=== PATIENT | male | born 1985 | race Hispanic/Latino ===

== ENCOUNTER 2024-10-23 17:56 | Inpatient (IN) | payer SELFPAY ==
[~2024-10-23 17:56] MED LIST: Iopamidol-370 76% 500 ML MDV (1 ML CHARGE) ONE
[2024-10-23 19:07] LABS: #Basophils 0.03 10x3/uL (0.0-0.2); #Eosinophils 0.07 10x3/uL (0.0-0.7); #Monocytes 0.39 10x3/uL (0.11-0.59); #Neutrophils 4.46 10x3/uL (1.40-6.50); %Basophils 0.5 % (0.0-1.0); %Eosinophils 1.2 % (0.0-10.0); %Lymphocytes 15.9 % (21.0-51.0); %Monocytes 6.6 % (0.0-10.0); %Neutrophils 75.6 % (42.0-75.0); Hematocrit 47.2 % (42.0-52.0); Hemoglobin 16.2 g/dL (14.0-18.0); Mean Corpuscular Hemoglobin 29.2 pg (27.0-31.0); Mean Corpuscular Volume 85.2 fL (78.0-98.0); Platelet Count 257 10x3/uL (130-400); Red Blood Cell (RBC) Count 5.54 mill/uL (4.70-6.10); White Blood Cell (WBC) Count 5.90 10x3/uL (4.8-10.8)
[2024-10-23 19:53] LABS: ALT (SGPT) 22 U/L (Less than 45); AST (SGOT) 12 U/L (11-34); Albumin 4.0 g/dL (3.1-4.5); Alkaline Phosphatase 123 U/L (40-110); Anion Gap 16 mmol/L (10-20); BUN (Urea Nitrogen) 12 mg/dL (8.9-20.6); Bilirubin, Total 0.6 mg/dL (0.3-1.2); Calc. Creatinine Clearance 0 mL/min (70-130); Calcium 9.2 mg/dL (7.8-10.44); Carbon Dioxide 24 mmol/L (22-29); Chloride 87 mmol/L (98-107); Globulin 2.9 g/dL (2.4-3.5); Glucose 1032 mg/dL (70-105); Lipase 56 U/L (8-78); Potassium 4.8 mmol/L (3.5-5.1); Sodium 122 mmol/L (136-145)
[2024-10-23] MEDS ORDERED: Ondansetron PF 4 MG/2 ML Vial ONE (20:14)
[2024-10-23 20:24] LABS: Bacteria/HPF None Seen HPF (None Seen); CAUTI Indications for Culture Dysuria,urgency,freq; Glucose, Urine (Dipstick) Greater than 1000 mg/dL (Negative); Leukocyte Negative Leu/uL (Negative); Protein, Urine (Dipstick) Negative (Neg-Trace); RBC/HPF 0-3 HPF (0-3); Specific Gravity, Urine 1.027 (1.002-1.036); WBC/HPF 0-3 HPF (0-3)
[2024-10-23 20:28] LABS: Actual Bicarbonate (HCO3v) 25.8 mEq/L (22-28); Base Excess 0.4 mEq/L (-2.0 to +3.0); Calcium, Ionized (venous) 1.20 mmol/L (1.16-1.32); Chloride (VBG) 89 mmol/L (98-106); Hematocrit-VBG 56 % (42.0-52.0); Hemoglobin (Hb) 18.9 g/dL (13.2-17.3); Potassium (VBG) 4.71 mmol/L (3.70-5.30); Sodium 131 mmol/L (133-146)
[2024-10-23 20:29] LABS: Urine Culture Reflex No No
[2024-10-23] MEDS ORDERED: INSULIN REGULAR IN 0.9 % NACL 100 ML ONE (22:03)
[2024-10-23] MEDS ORDERED: Ondansetron PF 4 MG/2 ML Vial IVP PRN (22:35)
[2024-10-23 22:44] LABS: Anion Gap 13 mmol/L (10-20); BUN (Urea Nitrogen) 10 mg/dL (8.9-20.6); Calc. Creatinine Clearance 0 mL/min (70-130); Calcium 8.0 mg/dL (7.8-10.44); Carbon Dioxide 22 mmol/L (22-29); Chloride 98 mmol/L (98-107); Glucose 669 mg/dL (70-105); Potassium 4.4 mmol/L (3.5-5.1); Sodium 129 mmol/L (136-145)
[2024-10-23] MEDS ORDERED: Electrolyte Replacement Protocol 1 EACH IVPB PRN (22:44)
[2024-10-23] MEDS ORDERED: Dextrose 50% Abboject 50 ML SYRINGE SLOW IVP PRN ×2 (22:44→23:12)
[2024-10-23] MEDS ORDERED: NS 0.9% w/ 20 MEQ KCL 1,000 ML IV PRN ×2 (22:44)
[2024-10-23] MEDS ORDERED: D5 1/2 NS w/20 mEq KCL 1,000 ML IV PRN (22:44)
[2024-10-23] MEDS ORDERED: INSULIN REGULAR IN 0.9 % NACL 100 ML IVPB SCH (22:45)
[2024-10-23] MEDS ORDERED: NS 0.9% w/ 20 MEQ KCL 1,000 ML ONE (22:50)
[2024-10-23] MEDS ORDERED: Glucagon 1 MG/ML KIT IM PRN (23:12)
[2024-10-24] MEDS: Insulin Glargine 30 UNITS/0.3 ML VIAL SC SCH ×3 (03:45→22:23)
[2024-10-24] MEDS: Thiamine 100 MG TAB PO SCH ×2 (03:50→10:44)
[2024-10-24 03:51] LABS: Cocaine Metabolite Screen Negative (Negative); THC/Cannabinoid Screen Negative (Negative); Tricyclic Screen Negative (Negative)
[2024-10-24 03:58] LABS: #Basophils 0.03 10x3/uL (0.0-0.2); #Eosinophils 0.12 10x3/uL (0.0-0.7); #Monocytes 0.58 10x3/uL (0.11-0.59); #Neutrophils 4.57 10x3/uL (1.40-6.50); %Basophils 0.4 % (0.0-1.0); %Eosinophils 1.7 % (0.0-10.0); %Lymphocytes 25.6 % (21.0-51.0); %Monocytes 8.1 % (0.0-10.0); %Neutrophils 63.9 % (42.0-75.0); Hematocrit 44.3 % (42.0-52.0); Hemoglobin 15.2 g/dL (14.0-18.0); Mean Corpuscular Hemoglobin 29.0 pg (27.0-31.0); Mean Corpuscular Volume 84.5 fL (78.0-98.0); Platelet Count 267 10x3/uL (130-400); Red Blood Cell (RBC) Count 5.24 mill/uL (4.70-6.10); White Blood Cell (WBC) Count 7.15 10x3/uL (4.8-10.8)
[2024-10-24 04:16] LABS: Anion Gap 9 mmol/L (10-20); BUN (Urea Nitrogen) 10 mg/dL (8.9-20.6); Calc. Creatinine Clearance 0 mL/min (70-130); Calcium 8.7 mg/dL (7.8-10.44); Carbon Dioxide 27 mmol/L (22-29); Glucose 378 mg/dL (70-105); Magnesium 2.2 mg/dL (1.6-2.6); Potassium 4.1 mmol/L (3.5-5.1); Sodium 135 mmol/L (136-145)
[2024-10-24 04:33] VITALS: BMI 24.3
[2024-10-24 04:44] LABS: Chloride 99 mmol/L (98-107)
[2024-10-24 06:40] LABS: Chlam.trachomatis by PCR,Urine Not Detected (NotDetected); GC N.gonorrhoeae PCR,UrineVOID Not Detected (NotDetected)
[2024-10-24] MEDS ORDERED: Insulin Glargine 30 UNITS/0.3 ML VIAL SC SCH ×2 (09:00→21:00)
[2024-10-24] MEDS: Folic Acid 1 MG TAB PO SCH (10:43)
[2024-10-24] MEDS: Enoxaparin 40 MG (0.4 mL) SYRINGE SC SCH (10:43)
[2024-10-24] MEDS: Senokot S 8.6-50 MG TAB PO SCH (10:43)
[2024-10-24] MEDS: Multivitamin W/ Minerals 1 TAB PO SCH (10:44)
[2024-10-24] MEDS: Pantoprazole 40 MG DR.TAB PO SCH (10:44)
[2024-10-24 12:28] VITALS: BMI 24.3
[2024-10-24] MEDS: Clotrimazole 1 % Cream 30 GM TUBE TOP SCH ×2 (12:38→22:22)
[2024-10-24] MEDS: Nystatin 500,000 UNITS/5 ML UDCUP SSW SCH (12:38)
[2024-10-24] MEDS ORDERED: Glucagon 1 MG/ML KIT IM PRN (21:11)
[2024-10-24] MEDS ORDERED: Dextrose 50% Abboject 50 ML SYRINGE SLOW IVP PRN (21:11)
[2024-10-24 22:05] LABS: Glucose POC Confirmation 443 mg/dL (80-115)
[2024-10-24] MEDS: metFORMIN 500 MG TAB PO SCH (22:18)
[2024-10-24] MEDS: Acetaminophen 325 MG TAB PO PRN (23:06)
[2024-10-25 04:26] LABS: #Basophils 0.03 10x3/uL (0.0-0.2); #Eosinophils 0.14 10x3/uL (0.0-0.7); #Monocytes 0.52 10x3/uL (0.11-0.59); #Neutrophils 4.02 10x3/uL (1.40-6.50); %Basophils 0.4 % (0.0-1.0); %Eosinophils 1.9 % (0.0-10.0); %Lymphocytes 34.3 % (21.0-51.0); %Monocytes 7.2 % (0.0-10.0); %Neutrophils 56.1 % (42.0-75.0); Hematocrit 40.1 % (42.0-52.0); Hemoglobin 13.8 g/dL (14.0-18.0); Mean Corpuscular Hemoglobin 29.2 pg (27.0-31.0); Mean Corpuscular Volume 84.8 fL (78.0-98.0); Platelet Count 233 10x3/uL (130-400); Red Blood Cell (RBC) Count 4.73 mill/uL (4.70-6.10); White Blood Cell (WBC) Count 7.18 10x3/uL (4.8-10.8)
[2024-10-25 04:44] LABS: Anion Gap 8 mmol/L (10-20); BUN (Urea Nitrogen) 11 mg/dL (8.9-20.6); Calc. Creatinine Clearance 139 mL/min (70-130); Calcium 8.5 mg/dL (7.8-10.44); Carbon Dioxide 29 mmol/L (22-29); Chloride 102 mmol/L (98-107); Glucose 164 mg/dL (70-105); Magnesium 1.8 mg/dL (1.6-2.6); Potassium 3.3 mmol/L (3.5-5.1); Sodium 136 mmol/L (136-145)
[2024-10-25] MEDS ORDERED: Insulin Glargine 30 UNITS/0.3 ML VIAL SC SCH ×2 (09:00)
[2024-10-25] MEDS: Insulin Glargine 30 UNITS/0.3 ML VIAL SC SCH (09:56)
[2024-10-25] MEDS: metFORMIN 500 MG TAB PO SCH (09:56)
[2024-10-25] MEDS: glipiZIDE 5 MG TAB PO SCH (09:57)
[2024-10-25 11:39] LABS: Syphilis Antibody Index 0.06 S/CO (<1.00 Non-Reactive)
[2024-10-25 11:45] VITALS: BP 119/80; TEMP 98
[2024-10-28 14:14] LABS: HSV 1 - DNA Negative (Negative); HSV 2 - DNA Negative (Negative)
== END 2024-10-25 15:54 | disposition home or self-care (01) | DRG 639 ==
LOC: ERS 17:56 → PCU 23:27
PROVIDERS: ADMIT Internal Medicine; ATTEND Hospitalist
DX: E11.10 Type 2 diabetes mellitus with ketoacidosis without coma (principal); F17.210 Nicotine dependence, cigarettes, uncomplicated; K59.00 Constipation, unspecified; F14.10 Cocaine abuse, uncomplicated; B37.9 Candidiasis, unspecified; N48.1 Balanitis; Z98.890 Other specified postprocedural states; Z83.3 Family history of diabetes mellitus
CPT/HCPCS: 36415; 36416; 71045; 74177; 80048; 80053; 80306; 81001; 82010; 82805; 83036; 83605; 83690; 83735; 84100; 84484; 85025; 85379; 86141; 86780; 87491; 87529; 87591; 93005; 93306; 96374; 96375; J1650; J1815; J2405; J3480; J7030; Q9967